=== PATIENT | male | born 1965 | race American Indian/Alaskan Native ===

== ENCOUNTER 2016-08-27 10:36 | Emergency (ER) | payer MEDICARE ==
[2016-08-27] MEDS ORDERED: CATAPRES PO ONE (13:31)
--- NOTE | 2016-08-27 13:43 | Emergency Department Report ---
HPI - General Chief Complaint: High BP Time Seen by Provider: 08/27/16 13:31 - HPI HPI: Room 26 The patient is a 51-year-old male presenting with a chief complaint of hypertension. Patient states she was asymptomatic decided to check his blood pressure at home and obtained a value of 220/117. The patient states she's been on of his hydrochlorothiazide for 2 days. Patient denies any symptoms. Patient denies specifically headache, chest pain or shortness of breath. 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) - Surgical History Past Surgical History?: Yes Additional Surgical History: hernia repair - Family History Family history: no significant - Social History Smoking Status: Never Smoker - Medications Home Medications: Home Medications Medication Instructions Recorded Confirmed Last Taken Type Hydrochlorothiazide [HCTZ] 12.5 mg PO QDAY #30 capsule 07/25/16 08/27/16 Unknown Rx amLODIPine [Norvasc] 5 mg PO DAILY #90 tab 08/27/16 Unknown Rx ED Review of Systems ROS: Stated complaint: ELEVATED BP/REFILL MEDS Other details as noted in HPI Comment: All other systems reviewed and negative Constitutional: denies: chills, fever Eyes: denies: eye pain, eye discharge, vision change ENT: denies: ear pain, throat pain Respiratory: denies: cough, shortness of breath, wheezing Cardiovascular: denies: chest pain, palpitations Endocrine: no symptoms reported Gastrointestinal: denies: abdominal pain, nausea, diarrhea Genitourinary: denies: urgency, dysuria Musculoskeletal: denies: back pain, joint swelling, arthralgia Skin: denies: rash, lesions Neurological: denies: headache, weakness, paresthesias Psychiatric: denies: anxiety, depression Hematological/Lymphatic: denies: easy bleeding, easy bruising Physical Exam - Physical Exam Vital Signs: Vital Signs 08/27/16 10:46 Temperature 98.6 F Pulse Rate 98 H Respiratory 16 Rate Blood Pressure 236/155 O2 Sat by Pulse 97 Oximetry Vital Signs - 24 hr 08/27/16 08/27/16 08/27/16 10:46 13:42 13:43 Temperature 98.6 F Pulse Rate 98 H 81 Respiratory 16 18 18 Rate Blood Pressure 236/155 Blood Pressure 208/136 [Right] O2 Sat by Pulse 97 99 Oximetry 08/27/16 08/27/16 14:38 16:43 Temperature Pulse Rate 88 Respiratory 18 Rate Blood Pressure Blood Pressure 226/123 156/119 [Right] O2 Sat by Pulse 98 Oximetry Physical Exam: GENERAL: The patient is well-developed well-nourished male sitting on stretcher not appearing to be in acute distress. [] HEENT: Normocephalic. Atraumatic. Extraocular motions are intact. Patient has moist mucous membranes. NECK: Supple. No meningitic signs are noted. Trachea midline CHEST/LUNGS: Clear to auscultation. There is no respiratory distress noted. HEART/CARDIOVASCULAR: Regular. There is no tachycardia. There is no gallop rub or murmur. ABDOMEN: Abdomen is soft, nontender. Patient has normal bowel sounds. There is no abdominal distention. SKIN: There is no rash. There is no edema. There is no diaphoresis. NEURO: The patient is awake, alert, and oriented. The patient is cooperative. Cranial nerves II through XII grossly intact with exception of cranial nerve XI on the left secondary to previous CVA. Slight left upper extremity weakness from previous CVA. The patient has normal speech MUSCULOSKELETAL: There is no evidence of acute injury. ED Course Vital Signs 08/27/16 10:46 Temperature 98.6 F Pulse Rate 98 H Respiratory 16 Rate Blood Pressure 236/155 O2 Sat by Pulse 97 Oximetry ED Medical Decision Making - Differential Diagnosis uncontrolled hypertension Critical care attestation.: If time is entered above; I have spent that time in minutes in the direct care of this critically ill patient, excluding procedure time. ED Disposition Clinical Impression: Uncontrolled hypertension Disposition: DISCHARGED TO HOME OR SELFCARE Is pt being admited?: No Does the pt Need Aspirin: No Condition: Stable Instructions: Hypertension (ED) Additional Instructions: Return to the emergency department immediately should you develop worsening symptoms, fever, inability to tolerate food or liquid or any other concerns. Prescriptions: amLODIPine [Norvasc] 5 mg PO DAILY #90 tab Referrals: [facility] [Outside] - 3-5 Days HOLLY GUNN MD [Staff Physician] - 3-5 Days (Car as a primary physician. Please follow up with him to be established as a patient for further blood pressure management) Time of Disposition: 16:44
[2016-08-27 17:06] VITALS: BP 156/110
== END 2016-08-27 17:07 | disposition home or self-care (01) ==
LOC: ED 10:36
DX: I10 Essential (primary) hypertension (principal); I63.9 Cerebral infarction, unspecified
CPT/HCPCS: 99282

== ENCOUNTER 2016-12-19 19:42 | Emergency (ER) | payer MEDICARE ==
[2016-12-19] MEDS ORDERED: CATAPRES PO ONE (20:30)
[2016-12-19] MEDS ORDERED: CATAPRES ONE (20:43)
--- NOTE | 2016-12-19 22:48 | Emergency Department Report ---
ED General Adult HPI - General Chief complaint: High BP Stated complaint: HTN Time Seen by Provider: 12/19/16 22:18 Source: patient, EMS Mode of arrival: Stretcher Limitations: Physical Limitation - History of Present Illness Initial comments: Patient is a 51-year-old male past medical history of high blood pressure who presents with asymptomatic high blood pressure. Patient states that he took his blood pressure and was 200/90 he had no headache no vision changes no chest pain no abdominal pain no paresthesias. He decided to go to the ER to get "checked out" patient states that he takes amlodipine 5 mg every day for his blood pressure. He also states that he is out of his medication. Patient denies any chest pain shortness of breath abdominal pain fevers chills nausea or vomiting. Patient states that he is came here for a refill of his medications. Severity scale (0 -10): 0 - Related Data Previous Rx's Medication Instructions Recorded Last Taken Type Hydrochlorothiazide [HCTZ] 12.5 mg PO QDAY #30 capsule 07/25/16 Unknown Rx amLODIPine [Norvasc] 5 mg PO DAILY #90 tab 12/19/16 Unknown Rx Allergies Allergy/AdvReac Type Severity Reaction Status Date / Time No Known Allergies Allergy Unverified 08/27/16 10:49 ED Review of Systems ROS: Stated complaint: HTN Other details as noted in HPI Constitutional: denies: chills, fever Eyes: denies: eye pain, eye discharge, vision change ENT: denies: ear pain, throat pain Respiratory: denies: cough, shortness of breath, wheezing Cardiovascular: denies: chest pain, palpitations Endocrine: no symptoms reported Gastrointestinal: denies: abdominal pain, nausea, diarrhea Genitourinary: denies: urgency, dysuria Musculoskeletal: denies: back pain, joint swelling, arthralgia Skin: denies: rash, lesions Neurological: denies: headache, weakness, paresthesias Psychiatric: denies: anxiety, depression Hematological/Lymphatic: denies: easy bleeding, easy bruising ED Past Medical Hx - Past Medical History Hx Hypertension: Yes 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) - Surgical History Additional Surgical History: hernia repair - Social History Smoking Status: Former Smoker Substance Use Type: Marijuana - Medications Home Medications: Home Medications Medication Instructions Recorded Confirmed Last Taken Type Hydrochlorothiazide [HCTZ] 12.5 mg PO QDAY #30 capsule 07/25/16 08/27/16 Unknown Rx amLODIPine [Norvasc] 5 mg PO DAILY #90 tab 12/19/16 Unknown Rx ED Physical Exam - General Limitations: Physical Limitation General appearance: alert, in no apparent distress - Head Head exam: Present: atraumatic, normocephalic - Eye Eye exam: Present: normal appearance - ENT ENT exam: Present: mucous membranes moist - Neck Neck exam: Present: normal inspection - Respiratory Respiratory exam: Present: normal lung sounds bilaterally. Absent: respiratory distress - Cardiovascular Cardiovascular Exam: Present: regular rate, normal rhythm. Absent: systolic murmur, diastolic murmur, rubs, gallop - GI/Abdominal GI/Abdominal exam: Present: soft, normal bowel sounds - Rectal Rectal exam: Present: deferred - Extremities Exam Extremities exam: Present: normal inspection - Back Exam Back exam: Present: normal inspection - Neurological Exam Neurological exam: Present: alert, oriented X3 - Psychiatric Psychiatric exam: Present: normal affect, normal mood - Skin Skin exam: Present: warm, dry, intact, normal color. Absent: rash ED Course Vital Signs 12/19/16 21:16 Temperature 98.3 F Pulse Rate 78 Respiratory 16 Rate Blood Pressure 195/130 Blood Pressure 195/130 [Left] O2 Sat by Pulse 100 Oximetry - Reevaluation(s) Reevaluation #1: 12/19/16 22:51 Patient is asymptomatic and is feeling well he has been given a dose of his blood pressure medicine today ED Medical Decision Making - Medical Decision Making Chief medical diagnosis asymptomatic high blood pressure Will give patient oral blood pressure medicine and we'll refill blood pressure medication. Gave additional verbal discharge instructions and an oral dose of patient's blood pressure medication to go home with discussed with patient about hypertension and Y c-collar and reduce his blood pressure. Critical care attestation.: If time is entered above; I have spent that time in minutes in the direct care of this critically ill patient, excluding procedure time. ED Disposition Clinical Impression: Hypertension Qualifiers: Hypertension type: unspecified Qualified Code(s): I10 - Essential (primary) hypertension Disposition: DC-01 TO HOME OR SELFCARE Is pt being admited?: No Does the pt Need Aspirin: No Condition: Stable Instructions: Hypertension (ED) Prescriptions: amLODIPine [Norvasc] 5 mg PO DAILY #90 tab Referrals: PRIMARY CARE, [Primary Care Provider] - 3-5 Days Time of Disposition: 22:53
[2016-12-19] MEDS ORDERED: NORVASC PO ONE (23:21)
[2016-12-19 23:37] VITALS: BP 160/106
== END 2016-12-19 23:38 | disposition home or self-care (01) ==
LOC: ED 19:42
DX: I10 Essential (primary) hypertension (principal); Z86.73 Personal history of transient ischemic attack (TIA), and cerebral infarction without residual deficits; Z87.891 Personal history of nicotine dependence; F12.10 Cannabis abuse, uncomplicated
CPT/HCPCS: 99283

== ENCOUNTER 2017-04-02 13:20 | Emergency (ER) | payer MEDICARE ==
--- NOTE | 2017-04-02 14:06 | Emergency Department Report ---
ED General Adult HPI - General Chief complaint: Medical Clearance Stated complaint: MEDICATION REFILL- symptoms; just needs meds Time Seen by Provider: 04/02/17 14:05 Source: patient Mode of arrival: Ambulatory Limitations: No Limitations - History of Present Illness Initial comments: last took med day before yest no s/s no cp no sob no lux hx cva knows import of taking his meds. -: Gradual Severity scale (0 -10): 0 Associated Symptoms: denies other symptoms - Related Data Previous Rx's Medication Instructions Recorded Last Taken Type amLODIPine [Norvasc] 5 mg PO DAILY #90 tab 04/02/17 Unknown Rx Allergies Allergy/AdvReac Type Severity Reaction Status Date / Time No Known Allergies Allergy Unverified 08/27/16 10:49 ED Review of Systems ROS: Stated complaint: MEDICATION REFILL Other details as noted in HPI Comment: med refill only Respiratory: denies: see HPI, cough, orthopnea, shortness of breath, SOB with exertion, SOB at rest Cardiovascular: denies: chest pain, palpitations, dyspnea on exertion, orthopnea Neurological: denies: as per HPI, headache, weakness, numbness, paresthesias, confusion, abnormal gait, vertigo ED Past Medical Hx - Past Medical History Hx Hypertension: Yes 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) - Surgical History Additional Surgical History: hernia repair - Social History Smoking Status: Never Smoker Substance Use Type: Alcohol - Medications Home Medications: Home Medications Medication Instructions Recorded Confirmed Last Taken Type amLODIPine [Norvasc] 5 mg PO DAILY #90 tab 04/02/17 Unknown Rx ED Physical Exam - General Limitations: No Limitations General appearance: alert - Head Head exam: Present: atraumatic - Eye Eye exam: Present: PERRL - ENT ENT exam: Present: mucous membranes moist - Neck Neck exam: Present: normal inspection - Respiratory Respiratory exam: Present: normal lung sounds bilaterally - Cardiovascular Cardiovascular Exam: Present: regular rate, normal rhythm - GI/Abdominal GI/Abdominal exam: Present: soft - Rectal Rectal exam: Present: deferred - Extremities Exam Extremities exam: Present: normal capillary refill - Back Exam Back exam: Present: normal inspection - Neurological Exam Neurological exam: Present: alert, oriented X3, CN II-XII intact, reflexes normal. Absent: motor sensory deficit (baseline for pt hx cva) - Psychiatric Psychiatric exam: Present: normal affect, normal mood - Skin Skin exam: Present: warm, dry, intact ED Course Vital Signs 04/02/17 04/02/17 04/02/17 13:33 14:14 14:53 Temperature 98 F Pulse Rate 100 H 59 L Respiratory 18 Rate Blood Pressure 145/119 173/125 Blood Pressure 178/130 [Left] O2 Sat by Pulse 98 Oximetry 04/02/17 04/02/17 04/02/17 15:48 16:12 16:35 Temperature Pulse Rate 74 74 74 Respiratory 16 16 Rate Blood Pressure 155/115 Blood Pressure 155/115 159/107 [Left] O2 Sat by Pulse 95 96 Oximetry 04/02/17 17:10 Temperature Pulse Rate 59 L Respiratory 16 Rate Blood Pressure Blood Pressure 138/95 [Left] O2 Sat by Pulse 95 Oximetry - Reevaluation(s) Reevaluation #1: 04/02/17 14:16 bp confirmed manual pt has no lux or cp neuro baseline hx cva clonidine po Reevaluation #2: 04/02/17 16:08 labs noted bp remains elevated do not want to lower too quickly no end organ issues will repeat clonidine and monitor 04/02/17 17:23 pt dc to home as bp trended downward no cp neuro intact dc home w outpt follow up ED Medical Decision Making - Lab Data Result diagrams: 04/02/17 14:23 04/02/17 14:23 - Medical Decision Making see note - Differential Diagnosis here for med refill but bp inc Critical care attestation.: If time is entered above; I have spent that time in minutes in the direct care of this critically ill patient, excluding procedure time. ED Disposition Clinical Impression: Hypertensive urgency, Medication refill, Hypokalemia Disposition: DC-01 TO HOME OR SELFCARE Is pt being admited?: No Does the pt Need Aspirin: No Condition: Stable Instructions: Hypertension (ED) Additional Instructions: low sodium diet meds as ordered do not skip doses follow up with pcp as instructed Prescriptions: amLODIPine [Norvasc] 5 mg PO DAILY #90 tab Referrals: PRIMARY CARE, [Primary Care Provider] - 3-5 Days MELO CEDILLO MD [Staff Physician] - 3-5 Days Time of Disposition: 15:04
[2017-04-02] MEDS ORDERED: CATAPRES PO ONE ×2 (14:13→16:07)
[2017-04-02 14:38] LABS: Basophils % (Auto) 0.6 % (0.0-1.8); Eosinophils % (Auto) 0.2 % (0.0-4.3); Hematocrit 42.8 % (35.5-45.6); Hemoglobin 14.4 gm/dl (11.8-15.2); Mean Corpuscular HGB Conc 34 % (32-34); Mean Corpuscular Hemoglobin 29 pg (28-32); Mean Corpuscular Volume 85 fl (84-94); Platelet Count 167 K/mm3 (140-440); Red Blood Count 5.02 M/mm3 (3.65-5.03); Red Cell Distribution Width 12.8 % (13.2-15.2); White Blood Count 3.9 K/mm3 (4.5-11.0)
[2017-04-02 14:58] LABS: Alanine Aminotransferase 11 units/L (7-56); Albumin 4.2 g/dL (3.9-5); Albumin/Globulin Ratio 1.6 %; Alkaline Phosphatase 57 units/L (35-129); Anion Gap 16 mmol/L; BUN/Creatinine Ratio 13; Blood Urea Nitrogen 16 mg/dL (9-20); Calcium 8.9 mg/dL (8.4-10.2); Carbon Dioxide 29 mmol/L (22-30); Chloride 102.2 mmol/L (98-107); Glucose 81 mg/dL (75-100); Potassium 3.5 mmol/L (3.6-5.0); Sodium 144 mmol/L (137-145); Total Protein 6.8 g/dL (6.3-8.2)
[2017-04-02] MEDS ORDERED: K-DUR PO ONE (15:05)
[2017-04-02 17:11] VITALS: BP 138/95
== END 2017-04-02 17:14 | disposition home or self-care (01) ==
LOC: ED 13:20
DX: Z76.0 Encounter for issue of repeat prescription (principal); I10 Essential (primary) hypertension; E87.6 Hypokalemia
CPT/HCPCS: 36415; 80053; 85025